=== PATIENT | male | born 1995 | race African-American/Black ===

== ENCOUNTER → 2020-06-28 | Outpatient (CLI) | payer OTHER, SELFPAY ==
[2013-07-22 22:29] VITALS: BMI 23.1
== END | disposition home or self-care (01) ==
LOC: LABSPEC 14:23
PROVIDERS: PCP Family Medicine; Referring Provider Family Medicine; Visit Provider Family Medicine
DX: Z20.822 Contact with and (suspected) exposure to COVID-19 (principal)
CPT/HCPCS: 87635; U0005; U0003